=== PATIENT | male | born 1975 | race Caucasian/White ===

== ENCOUNTER 2017-12-19 07:08 | Emergency (ER) | payer BC ==
[~2017-12-19] VITALS: Ht 172.7 cm; Wt 77.4 kg
[~2017-12-19 07:08] MED LIST: ANTIVERT25 MG PO; BACTRIM,SEPT1 TABLET PO; FISH OIL 1,0001 EAC7 PO; MOTRIN800 MG PO; MULTIVITAMIN1 EAC2 PO; NORCO 5/3251 TABLET PO; VITAMIN B122500 MCG PO; VITAMIN C1000 MG PO; VITAMIN D-32000 UNI2 PO; VITAMIN E1000 UNI1 PO
[2017-12-19 07:40] LABS: BASOPHIL (%) 0.4 % (0-1); EOSINOPHIL (%) 2.8 % (0-5); EOSINOPHIL COUNT 0.2 K/uL (0-0.3); HEMATOCRIT 42.3 % (38.0-50.0); HEMOGLOBIN 15.1 G/DL (12.5-16.6); IMMATURE GRANULOCYTE (%) 0.1 % (0.0-0.7); LYMPHOCYTE COUNT 1.6 K/uL (1.0-2.8); MCH 32.1 PG (29.0-34.0); MCHC 35.7 G/DL (30.0-36.0); MCV 89.8 FL (86-99); MONOCYTE (%) 8.1 % (3-12); MONOCYTE COUNT 0.7 K/uL (0-0.8); NEUTROPHIL (%) 69.6 % (45-76); NEUTROPHIL COUNT 5.9 K/uL (1.8-6.4); PLATELET COUNT 212 K/uL (156-360); RBC DIS.WIDTH-CV 12.2 % (11.8-14.6); RBC DIS.WIDTH-SD 40.3 % (39-53); RED BLOOD COUNT 4.71 M/uL (4.00-5.50); WHITE BLOOD COUNT 8.4 K/uL (4.1-10.2)
[2017-12-19 07:54] LABS: CHLORIDE 103 mEq/L (99-109); POTASSIUM 4.3 mEq/L (3.7-5.4); SODIUM 136 mEq/L (136-147)
[2017-12-19 07:56] LABS: GLUCOSE 151 mg/dL (70-99)
[2017-12-19 08:00] LABS: CREATININE 0.8 mg/dL (0.6-1.3); GFR ESTIMATE (CALCULATED) > 59 mL/min/ (58.99-99999)
[2017-12-19 08:01] LABS: UREA NITROGEN (BUN) 12 mg/dL (9-23)
[2017-12-19] MEDS ORDERED: FLAGYL500 MG PO (09:17)
[2017-12-19] MEDS ORDERED: PERCOCET 5/31 TABLET PO (09:17)
[2017-12-19] MEDS ORDERED: CIPRO500 MG PO (09:17)
[2017-12-19 09:30] VITALS: BP 110/874
== END 2017-12-19 09:47 | disposition home or self-care (01) ==
LOC: EME 07:08
PROVIDERS: Emergency Medicine
DX: K57.32 Diverticulitis of large intestine without perforation or abscess without bleeding (principal); F32.9 Major depressive disorder, single episode, unspecified; Z88.8 Allergy status to other drugs, medicaments and biological substances
CPT/HCPCS: 74177; 80048; 81003; 85025; 99281; 99285; J3010; J7030